=== PATIENT | male | born 1950 | race Caucasian/White ===

== ENCOUNTER → 2020-03-19 | Outpatient (CLI) | payer MEDICARE ==
[~2020-03-19] MED LIST: CATHETER FLUSH 10 ML SYR IV PRN
--- NOTE | 2020-03-19 11:21 | Diagnostic Imaging Report ---
INDICATION: Right sided abdominal pain. TECHNIQUE: The patient was administered 5.5 mCi technetium 99m Choletec intravenously and imaging over the abdomen was performed. At 45 minutes, the patient ingested 8 ounces of Ensure and a gallbladder ejection fraction was calculated. The patient denied any discomfort during the study. There is homogeneous uptake of activity by the liver. There is prompt excretion of activity into the common duct and gallbladder. There is normal passage of activity into the small bowel. Gallbladder ejection fraction is 81%. IMPRESSION: Normal HIDA scan and gallbladder ejection fraction. Dictated by: Dictated on workstation # [id number]
== END ==
LOC: CARD 08:48
PROVIDERS: ATTEND Family Medicine
DX: R10.9 Unspecified abdominal pain (principal)
CPT/HCPCS: 78227

== ENCOUNTER → 2020-04-06 | Outpatient (CLI) | payer MEDICARE ==
[~2020-04-06] MED LIST changes: +HOLD METFORMIN - RECEIVED CONTRAST 20 ML VIAL IV SCH; +IOHEXOL 350 MG/ML 100 ML (OMNIPAQUE 350) VIAL IV ONE; +NS 100 ML (IVPB) BAG IV ONE
[2020-04-06 09:09] LABS: BUN/CREATININE RATIO 21; CARBON DIOXIDE 29 MMOL/L (21-32); CHLORIDE 101 MMOL/L (98-107); CREATININE SERUM 0.98 MG/DL (0.60-1.30); GFR ESTIMATED > 60; POTASSIUM 4.9 MMOL/L (3.6-5.0); SODIUM 139 MMOL/L (135-145)
[2020-04-06 09:10] LABS: ALANINE AMINOTRANSFERASE 15 U/L (0-55); ALBUMIN 4.2 GM/DL (3.2-4.5); ALKALINE PHOSPHATASE 38 U/L (40-136); BILIRUBIN,TOTAL 0.3 MG/DL (0.1-1.0); CALCIUM 9.6 MG/DL (8.5-10.1); GLUCOSE 96 MG/DL (70-105); TOTAL PROTEIN 6.4 GM/DL (6.4-8.2)
--- NOTE | 2020-04-06 10:06 | Diagnostic Imaging Report ---
INDICATION: Right-sided abdominal pain x 2 months, history of prostate cancer. TECHNIQUE: Multiple contiguous axial CT images of the abdomen were obtained prior to and after intravenous administration of iodinated contrast. Auto Exposure Controls were utilized during the CT exam to meet ALARA standards for radiation dose reduction. COMPARISON: There is no previous CT for comparison. FINDINGS: The visualized portions of the lung bases demonstrate some motion artifact but no discrete focal lesion. There is no pleural fluid collection. There is no free intraperitoneal air. The liver shows a small cyst in the left lobe measuring about 1.7 cm. There is a smaller cyst in the right lobe superiorly measuring less than 1 cm. The spleen is not enlarged and shows no focal lesions. The adrenals and pancreas appear unremarkable. The kidneys bilaterally show multiple parapelvic cysts bilaterally but no evidence of hydronephrosis, mass, or renal calculi. The gallbladder appears normal. There is no retroperitoneal mass or adenopathy. There is prominent stool in the colon with no obstructing lesion. There is a small fat-containing periumbilical hernia. There are extensive degenerative findings throughout the lumbar spine. There is a chronic compression deformity of L4. IMPRESSION: No acute abnormality is seen. There are small cysts in the liver as above. There are multiple parapelvic cysts about both kidneys. There is no hydronephrosis. There is no overt gallbladder pathology. There is prominent stool in the colon. There is extensive degenerative change throughout the lumbar spine. Dictated by: Dictated on workstation # [id number]
== END ==
LOC: RAD FS 08:04
PROVIDERS: ATTEND Family Medicine
DX: M47.816 Spondylosis without myelopathy or radiculopathy, lumbar region (principal); K76.89 Other specified diseases of liver; N28.1 Cyst of kidney, acquired; Z85.46 Personal history of malignant neoplasm of prostate
CPT/HCPCS: 36415; 74170; 80053

== ENCOUNTER → 2020-11-05 | Outpatient (CLI) | payer MEDICARE ==
--- NOTE | 2020-11-05 17:45 | Diagnostic Imaging Report ---
INDICATION: Left shoulder pain post fall AP, oblique, and lateral views of the left shoulder are obtained. No fracture or acute bony abnormality is seen. There is degenerative change of the AC joint. The glenohumeral joint appears relatively unremarkable. IMPRESSION: Degenerative findings of the AC joint. No acute fracture or dislocation. Dictated by: Dictated on workstation # [id number]
== END ==
LOC: RAD FS 13:50
PROVIDERS: ATTEND Nurse Practitioner
DX: M19.012 Primary osteoarthritis, left shoulder (principal)
CPT/HCPCS: 73030

== ENCOUNTER → 2021-07-05 | Outpatient (CLI) | payer MEDICARE ==
--- NOTE | 2021-07-05 10:49 | Diagnostic Imaging Report ---
INDICATION: Low back pain. Patient has history of prostatic carcinoma. TIME OF EXAM: 10:35 AM A mild right convexity lumbar scoliotic curvature is noted. There is compression deformity involving L4 vertebral body. This was present on CT study from March 2020 but there may be further loss of stature of the L4 vertebral body since that time. Remaining lumbar vertebrae show normal stature. There are multilevel degenerative disc disease with variable disc space narrowing and marginal spurring. Multilevel facet arthropathies noted. IMPRESSION: Lumbar spondylosis and scoliosis. There is a chronic compression fracture deformity of the L4 vertebral body which does show further loss of height since prior CT from March 2020. No new compression fracture is identified. Dictated by: Dictated on workstation # [id number]
== END ==
LOC: RAD FS 10:20
PROVIDERS: ATTEND Family Medicine
DX: M47.816 Spondylosis without myelopathy or radiculopathy, lumbar region (principal); M43.8X6 Other specified deforming dorsopathies, lumbar region; M41.86 Other forms of scoliosis, lumbar region
CPT/HCPCS: 72100

== ENCOUNTER 2021-07-29 16:40 | Emergency (ER) | payer MEDICARE ==
[~2021-07-29] VITALS: Ht 187 cm; Wt 106.0 kg
--- OUTSIDE RECORDS SUMMARY | 2021-07-29 16:44 | XMS REPORT | Clinical Summary ---
Author Author [facility] Organization [facility] Address Unknown Phone Unavailable Care Team Providers Care Oracle Endeca Consultant Name Role Phone Danis, Rian FRANCE PCP Ian Renteria MD Unavailable Unavailable Neelima CHAMBERS PA-C, James R Unavailable [phone] Shruti Andrade RN Unavailable Unavailable Pb Hansen MD Unavailable Ginger Reilly Unavailable Unavailable Source Comments Some departments are not documenting in the electronic medical record. If you d o not see the information that you expected, contact [facility] at [phone] for further assistan ce in locating additional records.[facility] Allergies No Known Active Allergies Medications End Date Status Medication Sig Dispensed Refills Start Date Active acetaminophen (TYLENOL) Take 325 mg 0 325 mg tablet by mouth every 6 hours as needed. Active naproxen sodium(+) Take 220-440 0 (ALEVE) 220 mg tablet mg by mouth as Needed. Active pseudoephedrine (SUDAFED) Take 1-2 Tabs 12 Tab 0 60 mg tablet by mouth as 5 Needed for Congestion. Active multivitamin (MULTIPLE Take by 0 VITAMINS PO) mouth daily. Active other medication 1 Dose. 0 Vitamin B Si po qd Active acetaminophen/diphenhydra Take by 0 mine (TYLENOL PM mouth. PO)Indications: 2 caps po Indications: qhs 2 caps po qhs Active bicalutamide (CASODEX) 50 Take one 30 tablet 0 07/31/ mg tablet tablet by 0 mouth daily. Take at the same time every day. Active tamsulosin (FLOMAX) 0.4 TAKE 1 90 capsule 3 /202 mg capsule CAPSULE BY 0 MOUTH DAILY. DO NOT CRUSH, CHEW OR OPEN CAPSULES.TAKE 30 MINUTES FOLLOWING THE SAME MEAL EACH DAY Active Problems Problem Noted Date History of radiation therapy 11/06/2017 Overview: Formatting of this note is different fr om the original. Site Treatment Dates Technique Energy D ose/ Fraction (cGy) Total Dose (cGy) Fractions Missed Treatment Days Prostate bed 08/21/17 - 10/09/17 IMRT 6X 200 7000 35 1 Concurrent systemic therapy: ADT Site Treatment Dates Technique Energy D ose/ Fraction (cGy) Total Dose (cGy) Fractions Missed Treatment Days Pelvis 08/11/20 - 09/18/20 IMRT 6X 180/2 25 5040/6300 28 1 Concurrent systemic therapy: ADT Prostate cancer 09/15/2014 Cancer Staging: Pathologic: Stage III ( T3b, N0, cM0, PSA: 10 to 19, Mable 8-10 - Poorly differentiated/undifferen tiated (marked anaplasia)) - Unsigned Overview: Formatting of this note might be differ ent from the original. PSA (08/26/2014) = 13.7 ng/mL. TRUS Vo l = 35.7 mL. PNBx (09/15/2014): cT2a; (L) Mable 4+ 5=9, 6/7 cores, 20-95%; Dr. Mckeon. CT scan (09/23/2014): Negative. Bone scan (09/23/2014): Negative. (L) Wide Dissection/ Non-Nerve Sparing/ (R) Nerve Sparing, (B) Pelvic Lymph Node Dissection Robotic Asst Lap Prosta tectomy -- 11/10/2014 Dr. Renteria pT3b N0 Mx, Mable 4+5=9, Margins nega tive. Salvage radiation (70 Gy) to prostate b ed 08/21/2017 - 10/09/2017; + androgen deprivation therapy (ADT). L ast Assessment & Plan: Formatting of this note might be differ ent from the original. Mr. Ace is a 66 year old gentleman with high risk prostate cancer s/p right nerve sparing RALP and BPLND 10/27 04/09 for [id number], [place] 4+5=9, margins negative. Plan: - Extensive counseling took place today whereby it was explained that his PSA has not yet hit the threshold of 0. 2, however it has been rising steadily and he likely will need radiat ion therapy, possibly very soon. - Referral to radiation oncology today Erectile dysfunction following radical prostatectomy Overview: Formatting of this note might be differ ent from the original. 12/13/16: Using alprostadil injections w ith satisfactory results L ast Assessment & Plan: Formatting of this note might be differ ent from the original. - Continue alprostadil injections PRN SHYLA (stress urinary incontinence), male Overview: Formatting of this note might be differ ent from the original. 12/13/16: Post-prostatectomy SHYLA, wearin g one pad per day. L ast Assessment & Plan: Formatting of this note might be differ ent from the original. - Mr. Ace is not currently overly concerned with SHYLA compared to his worry regarding his prostate cancer - Continue kegel exercises and pads as needed Pancreatic cyst Overview: Formatting of this note might be differ ent from the original. CT (03/03/2015): MULTIPLE TINY HYPODENS E STRUCTURES SCATTERED WITH THE PANCREATIC PARENCHYMA MAY REPRESENT TIN Y PANCREATIC CYSTS. THE MAIN PANCREATIC DUCT IS NOT DILATED. RECOMM END FOLLOW-UP IN ONE YEAR. CT (06/13/2016): Mild fatty infiltratio n of the pancreas without definite pancreatic cyst. No further imaging fol low-up of the pancreas is required. L ast Assessment & Plan: Formatting of this note might be differ ent from the original. Due for repeat f/u scan. Will call pt w/ result. Encounters Care Team Description Date Type Specialty Arrived 07/18/2021 Hospital Radiology Encounter Arrived 07/12/2021 Hospital Radiology Encounter Charu Rosado MD Prostate cancer (HCC) 05/12/2021 Office Visit Radiation Therapy Charu Rosado MD Deaver, Paul, PT 05/12/2021 Hospital Rehabilitation Encounter Charu Rosado MD Malignant neoplasm of prostate (HCC) 05/12/2021 Hospital Lab Encounter 05/12/2021 Travel from Last 3 Months Surgical History Surgery Date Site/Laterality Comments ELECTROCARDIOGRAM HX HEART CATHETERIZATION 11/27/2001 - 11/26/2002 HX CATARACT REMOVAL 11/27/2013 - 11/26/2014 HX HEART CATHETERIZATION ~ 2011 RADICAL PROSTATECTOMY 11/10/2014 (R) Nerve Marylin hernández Robotic Asst Lap Prostatectomy; -- pending Dr. Renteria KNEE REPLACEMENT 11/27/2016 - Bilateral 11/26/2017 COLONOSCOPY 08/29/2018 N/A COLONOSCOPY per formed by Gustavo Lutz MD at ENDO/GI SIGMOIDOSCOPY 04/03/2019 N/A SIGMOIDOSCOPY W ITH CONTROL OF BLEEDING - FLEXIBLE performed by Gustavo Lutz MD at E NDO/GI Medical History Medical History Date Comments Chest pain Prostate cancer (HCC) 09/15/2014 Depression Elevated PSA Obstructive sleep apnea uses C-PAP GERD (gastroesophageal reflux disease) Osteoarthritis BPH with obstruction/lower urinary tract symptoms Pancreatic cyst Malignant neoplasm of colon (HCC) 10/2014 Family History Medical History Relation Name Comments Anesthetic Complication Brother Malignant Hype rthermia Hypertension Father Coronary Artery Disease Mother Heart Attack Mother Hypertension Mother Cancer-Prostate Neg Hx Relation Name Status Comments Brother Alive Father Alive Mother Sister Alive Sister Alive Sister Alive Sister Alive Social History Date Tobacco Use Types Packs/Day Years Used Never Smoker Smokeless Tobacco: Never Used Comments Alcohol Use Standard Drinks/Week No 0 (1 standard drink = 0.6 o z pure alcohol) Sex Assigned at Date Recorded Male 04/29/2020 7:10 PM CDT Last Filed Vital Signs Reading Time Taken Comments Vital Sign 132/69 05/12/2021 1:22 PM CDT Blood Pressure 61 05/12/2021 1:22 PM CDT Pulse 36.2 C (97.1 F) 05/12/2021 1:22 PM CDT Temperature 18 08/20/2018 1:04 PM CDT Respiratory Rate 98% 05/12/2021 1:22 PM CDT Oxygen Saturation - - Inhaled Oxygen Concentration 113.4 kg (250 lb) 05/12/2021 1:22 PM CDT Weight 188 cm (6' 2") 05/12/2021 1:22 PM CDT Height 32.1 05/12/2021 1:22 PM CDT Body Mass Index Plan of Treatment Health Maintenance Due Date Last Done Comments MEDICARE ANNUAL WELLNESS 1950 VISIT DTAP/TDAP VACCINES (1 - 1967 Tdap) HEPATITIS C SCREENING 1967 PHYSICAL (COMPREHENSIVE) 1967 EXAM SHINGLES RECOMBINANT 1999 VACCINE (1 of 2) PNEUMONIA (PPSV23) 2014 VACCINE (1 of 1 - PPSV23) INFLUENZA VACCINE 08/27/2021 COLORECTAL CANCER 08/29/2028 08/29/2018, SCREENING 08/29/2018 Procedures Comments Procedure Name Priority Date/Time Associated Diag nosis MRI L-SPINE EXTERNAL Routine 07/18/2021 IMAGING 12:00 AM CDT GENERAL RAD L-SPINE Routine 07/12/2021 EXTERNAL IMAGING 12:00 AM CDT HC TESTOSTERONE;TOTAL 05/12/2021 Malignant neopl asm of 8:30 AM CDT prostate (HCC) HC PROSTATIC SPECIF 05/12/2021 Malignant neoplas m of AG(PSA);TOT 8:30 AM CDT prostate (HCC) from Last 3 Months Results * MRI L-SPINE EXTERNAL IMAGING (07/18/2021 12:00 AM CDT) Specimen Narrative Performed At This order has been auto finalized and does not contain a result. * GENERAL RAD L-SPINE EXTERNAL IMAGING (07/12/2021 12:00 AM CDT) Specimen Narrative Performed At This order has been auto finalized and does not contain a result. * TESTOSTERONE,TOTAL (05/12/2021 8:30 AM CDT) Testosterone,To <10 (L) 270 - 1070 NG/DL [facility] loraine Specimen Performing Organization Address [facility] [place] [facility] [address] [place] [address] * PROSTATIC SPECIFIC ANTIGEN-PSA (05/12/2021 8:30 AM CDT) Prostatic <0.01 <6.01 NG/ML [facility] Specific Comment: Antigen REFERENCE RANGES AGE PSA VALUE <50 <=1.5 50-54 <=2.0 55-59 <=3.0 60-69 <=4.0 70+ <=6.0 Specimen Performing Organization Address City/State/ZIP [facility] [place] [facility] [address] [place] [address] from Last 3 Months Insurance Type Payer Benefit Subscriber ID Effective Phone Address Plan / Dates Group Medicare MEDICARE MEDICARE [id number] 2014-P PART A AND resent B PPO [facility] AARP [id number] 2014-P SUPPLEMENT resent [id number] [facility] (Home) [place], [place] [phone] Advance Directives Patient Family Dentist Explanation Type Date Recorded Advance 11/10/2014 10:06 AM Directive/DPOA Advance Directives 06/14/2012 1:29 PM and Living Will Date Inactivated Comments Code Status Date Activated 11/11/2014 6:13 PM Full Code 11/10/2014 6:26 PM Provider has discussed Code Status No, more discussi on w/Patient or Family? needed
--- OUTSIDE RECORDS SUMMARY | 2021-07-29 16:44 | XMS REPORT | Encounter Summary ---
Author Author [facility] Organization [facility] Address Unknown Phone Unavailable Care Team Providers Care Inspector Eyeglass Frames Name Role Phone Danis, Rian FRANCE PCP Ian Renteria MD Unavailable Unavailable Neelima CHAMBERS PA-C, James R Unavailable [phone] Shruti Andrade RN Unavailable Unavailable Pb Hansen MD Unavailable Ginger Reilly Unavailable Unavailable Encounter Details Care Team Description Date Type Department Arrived 07/12/2021 Hospital [facility] [place] [address] [place] [address] Social History Date Tobacco Use Types Packs/Day Years Used Never Smoker Smokeless Tobacco: Never Used Comments Alcohol Use Standard Drinks/Week No 0 (1 standard drink = 0.6 o z pure alcohol) Sex Assigned at Date Recorded Male 04/29/2020 7:10 PM CDT documented as of this encounter Functional Status Date of Assessment Functional Status Response 11/11/2014 Does the patient have a hearing impairment: No 11/11/2014 Does the patient have a visual impairment: Yes 11/11/2014 Does the patient have impaired ambulation: No 11/11/2014 Does the patient have an activity of daily living No (ADL) impairment: 11/11/2014 Does the patient have an instrumental activity of Ye s daily living (IADL) impairment: Date of Assessment Cognitive Status Response 11/11/2014 Does the patient have a cognitive impairment: No documented as of this encounter Plan of Treatment Not on filedocumented as of this encounter Procedures Comments Procedure Name Priority Date/Time Associated Diag nosis GENERAL RAD L-SPINE Routine 07/12/2021 EXTERNAL IMAGING 12:00 AM CDT documented in this encounter Results * GENERAL RAD L-SPINE EXTERNAL IMAGING (07/12/2021 12:00 AM CDT) Specimen Narrative Performed At This order has been auto finalized and does not contain a result. documented in this encounter Visit Diagnoses Not on filedocumented in this encounter Additional Health Concerns Assessment Noted Time A fall risk assessment has been completed for the pat ient 05/12/2021 1:23 PM CDT documented as of this encounter
--- OUTSIDE RECORDS SUMMARY | 2021-07-29 16:44 | XMS REPORT | Encounter Summary ---
Author Author [facility] Organization [facility] Address Unknown Phone Unavailable Care Team Providers Care Library Information Technician Name Role Phone Danis, Rian FRANCE PCP Ian Renteria MD Unavailable Unavailable Neelima CHAMBERS PA-C, James R Unavailable [phone] Shruti Andrade RN Unavailable Unavailable Pb Hansen MD Unavailable Ginger Reilly Unavailable Unavailable Encounter Details Care Team Description Date Type Department Arrived 07/18/2021 Hospital [place] [facility] [place] [address] [place] [address] Social History Date Tobacco Use [...] EXTERNAL Routine 07/18/2021 IMAGING 12:00 AM CDT documented in this encounter Results * MRI L-SPINE EXTERNAL IMAGING (07/18/2021 [...]
--- NOTE | 2021-07-29 16:47 | ED Fall/Injury ---
General Stated Complaint: BACK PAIN;LT HIP PAIN History of Present Illness Date Seen by Provider: Jul 29, 2021 Time Seen by Provider: 16:44 Initial Comments 71-year-old male presents with left hip/buttock pain. Patient reports ports that he got up from his chair and fell. Patient landed on his left hip. Patient is already scheduled to see [facility] August 17 due to multiple lumbar and sacral fractures letter for possible fusion. Has mild tingling in his left hip. He does have range of motion with some mild pain. He complains of pain mainly in the posterior buttock and in the groin. Minimal to the hip. He does not report any other injuries from the fall. Allergies and Home Medications Allergies Coded Allergies: No Allergy Information Available (Unverified , 03/19/20) Patient Home Medication List Home Medication List Reviewed: Yes Review of Systems Review of Systems Constitutional: No chills, No fever Eyes: No Symptoms Reported Ears, Nose, Mouth, Throat: no symptoms reported Respiratory: No cough, No short of breath Cardiovascular: No chest pain, No palpitations Gastrointestinal: No abdominal pain, No nausea, No vomiting Musculoskeletal: see HPI Skin: no symptoms reported Psychiatric/Neurological: No Symptoms Reported Physical Exam Vital Signs Vital Signs - First Documented 07/29/21 16:40 Temp 36.6 Pulse 56 Resp 16 B/P (MAP) 134/60 (84) Pulse Ox 95 O2 Delivery Room Air Capillary Refill : Height, Weight, BMI Height: '" Weight: lbs. oz. kg; BMI Method: General Appearance: WD/WN, no apparent distress Neck: full range of motion, supple Cardiovascular: normal peripheral pulses, regular rate, rhythm Respiratory: lungs clear, normal breath sounds Gastrointestinal: non tender, soft Pelvic: other (tenderness, posterior buttock and groin ) Back: other (pt with neoprene wrap/brace in place, chronic pain ) Extremities: other (mild pain with rom, but able to move without difficulty in left hip, non tender to palpation ) Neurologic/Psychiatric: alert, normal mood/affect, oriented x 3 Skin: normal color, warm/dry Progress/Results/Core Measures Results/Orders My Orders Orders - YEFRI GALLARDO DO Pelvis With Left Hip 2-3 View (07/29/21 16:47) Vital Signs/I&O 07/29/21 07/29/21 16:40 18:04 Temp 36.6 36.6 Pulse 56 65 Resp 16 16 B/P (MAP) 134/60 (84) 136/62 Pulse Ox 95 95 O2 Delivery Room Air Room Air Progress Progress Note : Progress Note Patient with slightly displaced anterior and inferior pubic rami fracture. Discussed with patient supportive care measures. Patient is already on home pain medication. Recommended they call their orthopedic surgeon in the morning at to make them aware. Patient stable and discharged home Diagnostic Imaging Diagonstic Imaging: Xray Plain Films/CT/US/NM/MRI: pelvis, hip Comments Date of Exam:07/29/21 PELVIS WITH LEFT HIP 2-3 VIEW INDICATION: Fell, hip pain. EXAMINATION: Pelvis and left hip at 5:06 p.m. A single AP view of the pelvis and AP and lateral views of the left hip were obtained. COMPARISON: There is no prior study available for comparison. FINDINGS: There are slightly displaced fractures of the pubic rami on the left. No other fracture or acute bony abnormality is noted. There is moderate degenerative disease involving the hip joints and mild degenerative disease of the sacroiliac joints. There is also fairly severe degenerative disc and bony disease in the visualized lower lumbar spine, particularly at L4-L5. The soft tissues are unremarkable. IMPRESSION: 1. There are slightly displaced fractures of the superior and inferior pubic rami on the left. If further study is desired, then CT would be recommended. 2. There is no acute bony abnormality appreciated otherwise. Reviewed: Reviewed by Me, Reviewed/Discussed Departure Impression Primary Impression: Fracture of left inferior pubic ramus Qualified Codes: S32.592A - Other specified fracture of left pubis, initial encounter for closed fracture Additional Impression: Fracture of left superior pubic ramus Qualified Codes: S32.512A - Fracture of superior rim of left pubis, initial encounter for closed fracture Disposition: 01 HOME, SELF-CARE Condition: Stable Departure-Patient Inst. Referrals: SELF,TATA FRANCE (PCP/Family) Primary Care Physician Patient Instructions: Pelvic Fracture Add. Discharge Instructions: Call your orthopedic surgeon in the morning to make them aware of your new fractures Start ambulation as tolerated, use a walker when ambulating YEFRI GALLARDO DO Jul 29, 2021 16:47
--- NOTE | 2021-07-29 17:23 | Diagnostic Imaging Report ---
INDICATION: Fell, hip pain. EXAMINATION: Pelvis and left hip at 5:06 p.m. A single AP view of the pelvis and AP and lateral views of the left hip were obtained. COMPARISON: There is no prior study available for comparison. FINDINGS: There are slightly displaced fractures of the pubic rami on the left. No other fracture or acute bony abnormality is noted. There is moderate degenerative disease involving the hip joints and mild degenerative disease of the sacroiliac joints. There is also fairly severe degenerative disc and bony disease in the visualized lower lumbar spine, particularly at L4-L5. The soft tissues are unremarkable. IMPRESSION: 1. There are slightly displaced fractures of the superior and inferior pubic rami on the left. If further study is desired, then CT would be recommended. 2. There is no acute bony abnormality appreciated otherwise. Dictated by: Dictated on workstation # [id number]
[2021-07-29 18:04] VITALS: BP 136/62
== END 2021-07-29 18:05 | disposition home or self-care (01) ==
LOC: EDUNIT# 16:40 → ER FS 16:42
DX: S32.592A Other specified fracture of left pubis, initial encounter for closed fracture (principal); S32.512A Fracture of superior rim of left pubis, initial encounter for closed fracture; W07.XXXA Fall from chair, initial encounter
CPT/HCPCS: 73502

== ENCOUNTER → 2022-01-03 | Outpatient (CLI) | payer MEDICARE ==
[~2022-01-03] VITALS: Ht 190 cm; Wt 100.0 kg
[~2022-01-03] MED LIST changes: +BUPIVACAINE 0.25% 30 ML (SENSORCAINE) VIAL INJ ONE; -CATHETER FLUSH 10 ML SYR IV PRN; -HOLD METFORMIN - RECEIVED CONTRAST 20 ML VIAL IV SCH; +IOHEXOL 300 MG/ML 50 ML (OMNIPAQUE 300) VIAL IV ONE; -IOHEXOL 350 MG/ML 100 ML (OMNIPAQUE 350) VIAL IV ONE; +LIDOCAINE 1% INJ 20 ML VIAL INJ ONE; -NS 100 ML (IVPB) BAG IV ONE; +methylPREDNISolone 40 MG/ML (DEPO MEDROL) VIAL IA ONE
--- NOTE | 2022-01-03 16:45 | Diagnostic Imaging Report ---
INDICATION: Right hip pain. Patient presents for fluoroscopically assisted right hip steroid injection. DETAILS OF THE PROCEDURE: The patient was brought to the fluoroscopy suite and placed on the table in the supine position. The right hip was prepped and draped in the usual sterile fashion. A small amount of 1% lidocaine was utilized for local anesthesia. A 20-gauge needle was advanced and placed with its tip in an intra-articular location along the lateral right femoral neck. 80 mg of Depo-Medrol and 3 cc of 0.25% bupivacaine was injected using fluoroscopic guidance. 18 seconds of fluoroscopic time was utilized. Two images were obtained. IMPRESSION: Fluoroscopically assisted right hip intra-articular injection of bupivacaine and Depo-Medrol solution. Patient tolerated the procedure well. Dictated by: Dictated on workstation # [id number]
== END ==
LOC: RAD 14:00
PROVIDERS: ATTEND Family Medicine
DX: M25.551 Pain in right hip (principal)
CPT/HCPCS: 20610; 77002

== ENCOUNTER → 2022-01-04 | Outpatient (CLI) | payer MEDICARE ==
--- NOTE | 2022-01-04 12:35 | Diagnostic Imaging Report ---
INDICATION: Right shoulder pain. COMPARISON: None. FINDINGS: Multiple radiographic views of the right shoulder were obtained. There is no fracture, dislocation, or other acute bony abnormality identified. The soft tissues appear unremarkable. No radiopaque foreign bodies identified. The visualized portions of the right lung are clear. IMPRESSION: No acute fractures or dislocations of the right shoulder. Dictated by: Dictated on workstation # [id number]
== END ==
LOC: RAD FS 11:01
PROVIDERS: ATTEND Nurse Practitioner
DX: M25.511 Pain in right shoulder (principal)
CPT/HCPCS: 73030